=== PATIENT | male | born 1985 | race Two or more races ===

== ENCOUNTER → 2017-05-16 | Day surgery (SDC) | payer MEDICAID ==
[~2017-05-16] MED LIST: NO MEDICATIONS
--- NOTE | ~2017-05-16 | OR ---
Unit #: [id number] #: [id number] Patient: STEPHON MURPHY [id number] [address] [place], [place] [address] [id number] O MR#: [id number] NAME: STEPHON MURPHY ROOM: Date of Procedure: 05/16/2017 Admission Date: 05/16/2017 Surgeon: Daniel Chandler Jr., M.D. : 1985 Attending Physician: Daniel Chandler Jr., M.D. PROCEDURE OPERATIVE NOTE Cosurgeons: Grady Barraza M.D. INDICATION FOR PROCEDURE The patient is a 32-year-old black male who recently presented to the office complaining of a bulge in the upper midline of his abdomen. On examination he was noted to have an incarcerated upper midline hernia where there was no evidence of any previous surgery. He has had no obstructive symptoms with it, but he is brought in at this time at his request due to the pain and discomfort for reduction and repair of this hernia. PREOPERATIVE DIAGNOSIS Large upper midline ventral incarcerated hernia. POSTOPERATIVE DIAGNOSIS Large upper midline ventral incarcerated hernia, noting approximately a 4-5 cm defect in the anterior abdominal wall. PROCEDURE PERFORMED Reduction and laparoscopic ventral hernia repair using a 6 x 8 inch Ventralight mesh. ANESTHESIA General with endotracheal intubation and 0.5 Marcaine with epinephrine locally. PROCEDURE The patient was placed in the supine position after being anesthetized and intubated, was prepped and draped in routine fashion for laparoscopic ventral hernia repair. Small 0.5 cm incision was made in the right lateral abdominal wall area and a 5 mm Optiview introduced in the abdomen. The abdomen was then inflated. The camera was introduced into the abdomen. There was no evidence of any injury related to the Optiview. There was an incarcerated upper midline ventral hernia. At this point an 11 mm port was placed in the right lower quadrant abdominal wall area and 5 mm port in the left upper and left lower quadrant abdominal wall area under direct visualization. Using retraction as well as the Endoshears, the incarcerated tissue within the hernia was freed up and then reduced back into the abdomen. This was all omentum with no evidence of any bowel stuck in the hernia. After this was completely reduced, fatty tissue including the falciform was removed from the anterior abdominal wall so as to get good coverage with the mesh. A 6 x 8 inch Ventralight mesh was tacked in four quadrants with Vicryl sutures, soaked in antibiotic solution and placed intra abdominally and brought up with the Endoclose Unit #: [id number] #: [id number] Patient: STEPHON MURPHY technique on the anterior abdominal wall with excellent coverage of the hernia defect. This was then tacked in place with secure straps and the sutures then were lysed that were holding the mesh up after hemostasis was noted. It should be noted that some hemoclips were used initially when there was lysis of adhesions. The small amount of blood in the abdomen was then soaked up with several 4 x 4 sponges placed directly in and then taken out directly prior to closure. After the sponge count was correct times three the fascia in the larger port site in the right lower quadrant abdominal wall area was then approximated using a needle close technique. After the CO2 was expressed from the abdomen, the ports were removed. There was no evidence of any bleeding from the port sites. The wound was irrigated after hemostasis was achieved with Bovie cautery. The port site wounds were injected with 0.5% Marcaine with epinephrine locally. The skin edges on all of the wounds were then approximated with stainless steel skin clips, skin stapling device. Sterile dressings were applied. ESTIMATED BLOOD LOSS Less than 100 cc. FLUIDS The patient received less than 2000 cc of Crystalloid solution during the procedure. COUNTS Sponge and instrument counts correct times three. DRAINS No drains used. COMPLICATIONS No complications. The patient was taken to the recovery room with stable vital signs, in satisfactory condition. Dictated by... Daniel Chandler Jr., M.D. JMB/fatou TD: 05/17/2017 07:59 JOB #: [id number] CC: Daniel Chandler Jr., M.D. PROCEDURE OPERATIVE NOTE Page 1 of 1 X Daniel Chandler MD PROCEDURE OPERATIVE NOTE
== END | disposition home or self-care (01) ==
LOC: CSUR 07:05
DX: K43.6 Other and unspecified ventral hernia with obstruction, without gangrene (principal); F17.210 Nicotine dependence, cigarettes, uncomplicated; Z98.890 Other specified postprocedural states
CPT/HCPCS: C1787; J0330; J0690; J1170; J1885; J2250; J2270; J2405; J2710; J3010